=== PATIENT | female | born 1985 ===

== ENCOUNTER 2018-05-05 15:04 | Emergency (ER) ==
--- NOTE | 2018-05-05 23:18 | EKG REPORT ---
SEVERITY:- BORDERLINE ECG - SINUS RHYTHM BORDERLINE T ABNORMALITIES, ANTERIOR LEADS : Confirmed by: Camilla Chen MD 05-May-2018 23:18:12
== END 2018-05-05 18:11 | disposition left against medical advice (07) ==
LOC: ER 15:04
DX: Z53.21 Procedure and treatment not carried out due to patient leaving prior to being seen by health care provider (principal); R42 Dizziness and giddiness
CPT/HCPCS: 93005; 93010